=== PATIENT | male | born 1980 | race African-American/Black ===

== ENCOUNTER 2021-10-14 17:06 | Emergency (ER) | payer SELFPAY ==
[~2021-10-14] VITALS: Ht 170.2 cm; Wt 74.9 kg
[2021-10-14] MEDS ORDERED: cefTRIAXone 1,000 MG VIAL IM STA (17:29)
[2021-10-14] MEDS ORDERED: LIDOCAINE 1% INJ 20 ML 20 ML VIAL INJ STA (17:29)
[2021-10-14] MEDS ORDERED: LIDOCAINE 1% INJ 20 ML 20 ML VIAL INJ ONE (17:30)
--- NOTE | 2021-10-14 17:39 | ED Integumentary General ---
General Chief Complaint: Breast Complaints Stated Complaint: LT BREAST ENLARGED Nursing Triage Note: PT AMBULATE TO ROOM FS02 WITH C/O LEFT BREAST ENLARGEMENT AND TENDERNESS X3 DAYS. Source: patient History of Present Illness Date Seen by Provider: Oct 14, 2021 Time Seen by Provider: 17:11 Initial Comments 41 yo male presenting with complaints of redness, swelling, pain to the left breast. He has not had any drainage from this area. He denies any fever or chills. He has had increasing pain and redness to this area. He reports having recurrent abscesses in the past. He has been previously incarcerated and been told that he had MRSA when he was in correction. He usually gets abscesses under his arms and was told not to use deodorant. He denies having a primary care provider. He denies any allergies to medications and does not take any medicines on a regular basis. Timing/Duration: getting worse (over the last 3 days) Severity: moderate Location: torso (left breast) Possible Cause: no cause identified Associated Symptoms: No blisters, No fever, No flushing, No headache, No hives, No jaundice, No malaise, No nasal congestion, No numbness, No pallor, No paresthesia, No petechiae, No rash, No sore throat; swelling/mass/lumps (left b reast); No tingling Allergies and Home Medications Allergies Coded Allergies: No Known Drug Allergies (Unverified , 10/14/21) Patient Home Medication List Home Medication List Reviewed: Yes Hydrocodone/Acetaminophen (Hydrocodone-Acetamin 5-325 mg) 1 Each Tablet, 1 TAB PO Q4H PRN for PAIN-SEVERE (8-10) Prescribed by: NOLAN GALLEGOS on 10/14/211814 Ibuprofen (Ibuprofen) 800 Mg Tablet, 800 MG PO Q8H PRN for PAIN Prescribed by: NOLAN GALLEGOS on 10/14/211740 Sulfamethoxazole/Trimethoprim (Bactrim Ds Tablet) 1 Each Tablet, 1 EACH PO BID Prescribed by: NOLAN GALLEGOS on 10/14/211740 Review of Systems Review of Systems Constitutional: No chills, No fever EENTM: no symptoms reported Respiratory: no symptoms reported Cardiovascular: no symptoms reported Gastrointestinal: no symptoms reported Genitourinary: no symptoms reported Musculoskeletal: no symptoms reported Skin: see HPI, change in color (erythematous painful area to left breast) Psychiatric/Neurological: No Symptoms Reported Past Uszfxge-Ychpuc-Fmwwop Hx Patient Social History Tobacco Use?: Yes Tobacco type used: Cigarettes Smoking Status: Current Everyday Smoker Smokeless Tobacco Frequency: Never a User Use of E-Cig and/or Vaping dev: No Substance use?: No Alcohol Use?: No Past Medical History Surgery/Hospitalization HX: Recurrent abscesses Physical Exam Vital Signs Vital Signs - First Documented 10/14/21 17:07 Temp 36.5 Pulse 97 Resp 15 B/P (MAP) 146/89 (108) O2 Delivery Room Air Capillary Refill : Less Than 3 Seconds General Appearance: WD/WN, no apparent distress Neck: non-tender, full range of motion, supple, normal inspection Cardiovascular: normal peripheral pulses, regular rate, rhythm Respiratory: lungs clear, normal breath sounds, other (tender to palpation left breast where he has erythema with induration and increased warmth) Neurologic/Psychiatric: alert, oriented x 3 Skin: warm/dry Skin Problem Location: torso (left breast) Skin Problem Character: erythema, swelling, tenderness, warm Procedures/Interventions I&D : Site: left breast Blade Size: 11 I & D Procedure: sterile drapes applied, sterile dressing applied Progress After obtaining verbal consent from the patient the area on the inferior aspect of the left breast were it appeared to be pointing and coming to ahead was prepped with chlorhexidine swabs. Then using 1% plain lidocaine a total of 1.3 mL were infiltrated subcutaneously and into the tissue. Then using a 11 blade scalpel a single stab incision was made. This did result in the gushing fountain of purulence that sprayed out onto the floor several feet from the patient. The drainage was swabbed for wound culture. Then using gentle pressure the breast tissue and abscess was milked to express further purulent drainage and serosanguineous drainage. He was describing a burning sensation when this was happening. Patient tolerated the procedure well without any immediate complication. It was not felt to be numb enough for him to tolerate any irrigation or packing of the wound. Counseled patient on warm packs and stressed the importance of antibiotic. He was given an IM injection of Rocephin 1 g here in the ED as well as prescription for Bactrim DS. Given information for the [facility] clinic to establish care for follow-up. Advised of need to return to ER if having worsening symptoms and not improving with treatment Progress/Results/Core Measures Results/Orders My Orders Orders - NOLAN GALLEGOS MD Lidocaine 1% Inj 20 Ml (Xylocaine 1% Inj (10/14/21 17:29) Ceftriaxone (Rocephin) (10/14/21 17:29) Lidocaine 1% Inj 20 Ml (Xylocaine 1% Inj (10/14/21 17:30) Wound Culture (10/14/21 17:29) Medications Given in ED Current Medications Medications Dose Ordered Sig/Sandro Route Start Time Stop Time Status Last Admin Dose Admin Lidocaine HCl 2.1 ml ONCE ONCE INJ 10/14/21 17:30 10/14/21 17:32 DC 10/14/21 17:39 2.1 ML Vital Signs/I&O 10/14/21 17:07 Temp 36.5 Pulse 97 Resp 15 B/P (MAP) 146/89 (108) O2 Delivery Room Air Blood Pressure Mean: 108 Progress Progress Note : Progress Note Patient verbally consented for incision and drainage of the abscess of the left breast and anterior chest wall. When the incision and drainage was performed a large amount of purulent drainage was expressed. He did describe a burning sensation in that area after the procedure was done. Counseled on follow-up and return precautions as well as given information for the [facility] clinic to try and e stablish a primary care provider. Departure Impression Primary Impression: Abscess of left breast Disposition: 01 HOME, SELF-CARE Condition: Stable Departure-Patient Inst. Decision time for Depature: 18:16 Referrals: NO,LOCAL PHYSICIAN (PCP) Primary Care Physician [facility] Patient Instructions: Abscess Incision and Drainage ED Add. Discharge Instructions: Take full course of antibiotics to help treat for infection. Use warm packs to the area to help it drain more and increase the blood flow to the area so more antibiotic gets to the infection. If not improving then you may still need a surgeon to clean the wound and help get the infection to heal You could call [facility] clinic at [phone] to see about establishing care with them and be able to follow up with a local provider. All discharge instructions reviewed with patient and/or family. Voiced understanding. Scripts Hydrocodone/Acetaminophen (Hydrocodone-Acetamin 5-325 mg) 1 Each Tablet 1 TAB PO Q4H PRN for PAIN-SEVERE (8-10) for 3 Days, #18 TAB 0 Refills Prov: NOLAN GALLEGOS MD 10/14/21 Ibuprofen (Ibuprofen) 800 Mg Tablet 800 MG PO Q8H PRN for PAIN for 10 Days, #30 TAB 0 Refills Prov: NOLAN GALLEGOS MD 10/14/21 Sulfamethoxazole/Trimethoprim (Bactrim Ds Tablet) 1 Each Tablet 1 EACH PO BID for abscess/cellulitis for 10 Days, #20 TAB 0 Refills Prov: NOLAN GALLEGOS MD 10/14/21 NOLAN GALLEGOS MD Oct 14, 2021 17:39
[2021-10-14] MEDS ORDERED: SULF1TAB38 PO (17:41)
[2021-10-14] MEDS ORDERED: IBUP-1780 PO (17:41)
[2021-10-14] MEDS ORDERED: ACHD5005 PO (18:15)
[2021-10-14 18:22] VITALS: BP 146/76
== END 2021-10-14 18:22 | disposition home or self-care (01) ==
LOC: ER FS 17:07
DX: N61.1 Abscess of the breast and nipple (principal); F17.210 Nicotine dependence, cigarettes, uncomplicated; Z86.14 Personal history of Methicillin resistant Staphylococcus aureus infection
CPT/HCPCS: 87070; 87205; 99284

== ENCOUNTER 2022-10-29 09:03 | Emergency (ER) | payer SELFPAY ==
[~2022-10-29] VITALS: Ht 170 cm; Wt 68.0 kg
[~2022-10-29 09:03] MED LIST: ACHD5005 PO; IBUP-1780 PO; SULF1TAB38 PO
[2022-10-29 09:16] VITALS: BP 166/100
[2022-10-29] MEDS ORDERED: IBUPROFEN 800 MG (MOTRIN) TAB PO STA (09:24)
--- NOTE | 2022-10-29 09:32 | ED Lower Extremity ---
General Chief Complaint: Lower Extremity Stated Complaint: LEFT FOOT SWOLLEN Nursing Triage Note: Patient has presented to ER with cc of left foot pain and swelling for the last 5 days. He in unsure of any injury to his foot or ankle. He has not taken anything for the pain and came to ER for evaluation. Source: patient Exam Limitations: no limitations History of Present Illness Date Seen by Provider: Oct 29, 2022 Time Seen by Provider: 09:07 Initial Comments 42-year-old male presenting with complaints of pain and swelling to the left foot and ankle x5 days. He denies any acute injury or stress to his ankle and foot. He reports waking up 5 days ago and having pain and swelling. He has not tried taking anything for pain or swelling. He has felt hot at night but has not taken his temperature at home to check for fever. He denies having symptoms like this previously. 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 However there is no open sores or injuries to the foot and ankle. He does not have any increased redness or fluctuance or drainage from left foot and ankle. Onset: last week Severity: moderate Pain/Injury Location: left foot, left ankle Method of Injury: unknown Modifying Factors: Improves With Immobilization; Worse With Movement (walking and movement makes pain worse) Allergies and Home Medications Allergies Coded Allergies: No Known Drug Allergies (Unverified , 10/14/21) Patient Home Medication List Home Medication List Reviewed: Yes Ibuprofen (Ibuprofen) 800 Mg Tablet, 800 MG PO Q8H PRN for PAIN Prescribed by: NOLAN GALLEGOS on 10/29/22 1053 Metformin HCl (Metformin HCl) 500 Mg Tablet, 500 MG PO BID Prescribed by: NOLAN GALLEGOS on 10/29/22 1053 Tramadol HCl (Tramadol HCl) 50 Mg Tablet, 50 MG PO Q6H PRN for PAIN-SEVERE (8- 10) Prescribed by: NOLAN GALLEGOS on 10/29/22 1054 Discontinued Medications Hydrocodone/Acetaminophen (Hydrocodone-Acetamin 5-325 mg) 1 Each Tablet, 1 TAB PO Q4H PRN for PAIN-SEVERE (8-10) Prescribed by: NOLAN GALLEGOS on 10/14/21 181 Sulfamethoxazole/Trimethoprim (Bactrim Ds Tablet) 1 Each Tablet, 1 EACH PO BID Prescribed by: NOLAN GALLEGOS on 10/14/21 1741 Review of Systems Constitutional: see HPI; No chills EENTM: no symptoms reported Respiratory: no symptoms reported Cardiovascular: no symptoms reported Gastrointestinal: no symptoms reported Genitourinary: no symptoms reported Musculoskeletal: see HPI, joint pain (left ankle and foot), joint swelling (left ankle) Skin: No change in color Psychiatric/Neurological: Tingling (left foot) Past Cgmmnty-Xelxem-Xvbkzm Hx Patient Social History Tobacco Use?: Yes Tobacco type used: Cigarettes Smoking Status: Current Everyday Smoker Use of E-Cig and/or Vaping dev: No Substance use?: No Alcohol Use?: No Past Medical History Surgery/Hospitalization HX: Recurrent abscesses Physical Exam Vital Signs Vital Signs - First Documented 10/29/22 09:16 Temp 35.9 Pulse 91 Resp 16 B/P (MAP) 166/100 (122) Pulse Ox 99 O2 Delivery Room Air Capillary Refill : Height, Weight, BMI Height: '" Weight: lbs. oz. kg; 23.00 BMI Method: General Appearance: WD/WN, no apparent distress Cardiovascular: normal peripheral pulses Ankles: right ankle non-tender; bilateral ankle normal range of motion, bilateral ankle no evidence of injury; left ankle pain (pain with palpation and ROM), left ankle soft tissue tenderness, left ankle swelling Feet: left foot pain, left foot soft tissue tenderness, left foot swelling Neurologic/Tendon: normal motor functions, normal tendon functions, sensory deficit (reports tingling in left foot but intact to light touch) Neurologic/Psychiatric: alert, oriented x 3 Skin: normal color, warm/dry Progress/Results/Core Measures Results/Orders Lab Results Laboratory Tests Test 10/29/22 09:30 Range/Units White Blood Count 12.4 H 4.3-11.0 10^3/uL Red Blood Count 5.39 4.30-5.52 10^6/uL Hemoglobin 13.5 13.3-17.7 g/dL Hematocrit 42 40-54 % Mean Corpuscular Volume 77 L 80-99 fL Mean Corpuscular Hemoglobin 25 25-34 pg Mean Corpuscular Hemoglobin Concent 32 32-36 g/dL Red Cell Distribution Width 14.8 H 10.0-14.5 % Platelet Count 376 130-400 10^3/uL Mean Platelet Volume 8.8 L 9.0-12.2 fL Immature Granulocyte % (Auto) 1 % Neutrophils (%) (Auto) 63 42-75 % Lymphocytes (%) (Auto) 30 12-44 % Monocytes (%) (Auto) 6 0-12 % Eosinophils (%) (Auto) 1 0-10 % Basophils (%) (Auto) 0 0-10 % Neutrophils # (Auto) 7.8 1.8-7.8 10^3/uL Lymphocytes # (Auto) 3.7 1.0-4.0 10^3/uL Monocytes # (Auto) 0.7 0.0-1.0 10^3/uL Eosinophils # (Auto) 0.1 0.0-0.3 10^3/uL Basophils # (Auto) 0.0 0.0-0.1 10^3/uL Immature Granulocyte # (Auto) 0.1 0.0-0.1 10^3/uL D-Dimer 0.61 H 0.00-0.49 UG/ML Sodium Level 133 L 135-145 MMOL/L Potassium Level 3.8 3.6-5.0 MMOL/L Chloride Level 97 L 98-107 MMOL/L Carbon Dioxide Level 25 21-32 MMOL/L Anion Gap 11 5-14 MMOL/L Blood Urea Nitrogen 8 7-18 MG/DL Creatinine 0.66 0.60-1.30 MG/DL Estimat Glomerular Filtration Rate 121 BUN/Creatinine Ratio 12 Glucose Level 322 H 70-105 MG/DL Calcium Level 9.5 8.5-10.1 MG/DL Corrected Calcium 9.4 8.5-10.1 MG/DL Total Bilirubin 0.3 0.1-1.0 MG/DL Aspartate Amino Transf (AST/SGOT) 10 5-34 U/L Alanine Aminotransferase (ALT/SGPT) 9 0-55 U/L Alkaline Phosphatase 114 40-136 U/L C-Reactive Protein 0.84 H <0.50 MG/DL Total Protein 8.8 H 6.4-8.2 GM/DL Albumin 4.1 3.2-4.5 GM/DL My Orders Orders - NOLAN GALLEGOS MD Uric Acid (10/29/22 09:23) Cbc With Automated Diff (10/29/22 09:23) Comprehensive Metabolic Panel (10/29/22 09:23) Crp Fs (10/29/22 09:23) Fibrin Degradation Products (10/29/22 09:23) Ibuprofen Tablet (Motrin Tablet) (10/29/22 09:24) Ankle 3 View Left (10/29/22 09:25) Us Venous Lower Ext Lt (10/29/22 10:20) Vital Signs/I&O 10/29/22 09:16 Temp 35.9 Pulse 91 Resp 16 B/P (MAP) 166/100 (122) Pulse Ox 99 O2 Delivery Room Air Blood Pressure Mean: 122 Progress Progress Note #1: Progress Note With no obvious injury or break in the skin this may be related to issue with joint or inflammatory process. Will obtain xrays of left ankle to evaluate the bony structure looking for occult fracture, dislocation, signs of osteomyelitis. Basic labs of CBC, CMP, CRP, D dimer, Uric Acid. This will help look for infection, inflammation, DVT, Cellulitis, Gout. Administer Ibuprofen 800 mg po x 1 to start helping with pain and swelling while waiting on labs and tests. Progress Note #2: Time: 09:39 Progress Note On my personal interpretation and review of his 3 views of left ankle he has some mild soft tissue swelling but no acute bony abnormality. On the lateral view he has calcification of peripheral blood vessels showing on imaging. 0947 Radiologist read xrays as no acute bony abnormality. CBC shows mild elevation of WBC count to 12.4 with normal differential. He does have a low MCV of 77 but his Hgb is normal at 13.6. He could have some iron deficiency contributing to his low MCV but is not currently anemic. Will encourage him to follow up with clinic for this. The WBC count might be elevated due to stress reaction with him having over 5 days of pain and swelling or could be early infection as he has history of recurrent cellulitis and abscesses. Awaiting other labs Progress Note #3: Time: 10:18 Progress Note Chemistry and D dimer resulted by lab. His D dimer was just above normal level at 0.61 so will add on ultrasound doppler of LLE to check for DVT. As I already discussed with patient I did not feel this was a DVT as he has no calf pain, redness, swelling, cording. It seems to be more inflammatory with his ankle and achilles being tender to touch and movement. CRP slightly elevated as well to go with inflammatory process. He does have elevated glucose of 322 so I am diagnosing him with Diabetes and will start him on Metformin for that. Stressed importance of follow up with clinic and establish care for treating diabetes and borderline blood pressure. Renal function and liver function appear good with normal lab values. 1047 Ultrasound doppler of LLE does not show DVT. Will proceed with ibuprofen for inflammation and pain and swelling, Metformin for diabetes, Tramadol for severe pain. Continue to elevate and rest leg when possible. Establish care to follow up on diabetes, blood pressure and ankle. Advised that if this is related to diabetes he may even need to be in a boot or cast and crutches to take weight off of the ankle and foot to help with the inflammation and pain. If he is developing a Charcot Joint then he would need this more aggressive treatment. Will start with NSAIDS, rest, elevation and trying to get control of diabetes. Diagnostic Imaging Diagonstic Imaging: Xray Plain Films/CT/US/NM/MRI: ankle Comments NAME: GALA ROSARIO [facility] REC#: [id number] PT STATUS: REG ER : 1980 PHYSICIAN: NOLAN GALLEGOS MD ADMIT DATE: 10/29/22/ER FS Draft Date of Exam:10/29/22 ANKLE 3 VIEW LEFT Indication: Left ankle pain and swelling. Time of Exam: 9:41 AM 3 views of the left ankle were obtained. Ankle alignment is normal. Ankle mortise is well-maintained. Talar dome is smooth. No fracture or dislocation is identified. Impression: No acute abnormality is detected. Dictated on workstation # [id number] Dict: 10/29/22 0941 Trans: 10/29/22 0944 [facility] [id number] Interpreted by: SUNITA VILLA MD Electronically signed by: Reviewed: Reviewed by Me Diagonstic Imaging: Ultrasound Plain Films/CT/US/NM/MRI: leg Comments NAME: GALA ROSARIO [facility] REC#: [id number] PT STATUS: REG ER : 1980 PHYSICIAN: NOLAN GALLEGOS MD ADMIT DATE: 10/29/22/ER FS Draft Date of Exam:10/29/22 US VENOUS LOWER EXT LT PROCEDURE: US left lower extremity venous. TECHNIQUE: Multiple real-time grayscale images were obtained over the left lower extremity in various projections. Additional duplex Doppler and color Doppler images were also obtained. INDICATION: Elevated D-dimer and left foot swelling. FINDINGS: There is no evidence of left lower extremity DVT. Left lower extremity deep venous system shows normal compressibility with normal response to augmentation and Valsalva. No fluid collection or mass is detected. IMPRESSION: No evidence of left lower extremity DVT. Dictated on workstation # [id number] Dict: 10/29/22 1054 Trans: 10/29/22 1059 [id number] Interpreted by: SUNITA VILLA MD Electronically signed by: Reviewed: Reviewed by Me Departure Impression Primary Impression: Pain and swelling of left ankle Additional Impressions: Pain in left foot Swelling of left foot New onset type 2 diabetes mellitus Elevated blood pressure reading in office without diagnosis of hypertension Disposition: HOME, SELF-CARE Condition: Stable Departure-Patient Inst. Decision time for Depature: 10:49 Referrals: NO,LOCAL PHYSICIAN (PCP) [place] Care Phys[place] [facility] [place] Instructions: High Blood Sugar, Adult ED, Swollen Joints (DC), Diabetes and Diet, The ABCs of Diabetes, Treatment for Type 2 Diabetes, How to Keep Track of Your Blood Sugar Add. Discharge Instructions: Establish care with primary care clinic such as [facility] by calling [phone]. Try to rest and elevate your foot when you can. Take the prescription anti-inflammatory to help with pain and swelling. Take the Metformin to help with your glucose and new onset Diabetes. Establish care with clinic so they may help you manage this and they might start you on blood pressure medicine as well. Try to watch your diet and avoid extra sugar and sweets in your diet. The clinic can help get you more diabetes education on monitoring your sugars as well as diet changes and medicines. All discharge instructions reviewed with patient and/or family. Voiced understanding. Scripts Tramadol HCl (Tramadol HCl) 50 Mg Tablet 50 MG PO Q6H PRN for PAIN-SEVERE (8-10) for 3 Days, #12 TAB 0 Refills Prov: NOLAN GALLEGOS MD 10/29/22 Metformin HCl (Metformin HCl) 500 Mg Tablet 500 MG PO BID for Hyperglycemia for 30 Days, #60 TAB 0 Refills Prov: NOLAN GALLEGOS MD 10/29/22 Ibuprofen (Ibuprofen) 800 Mg Tablet 800 MG PO Q8H PRN for PAIN for 10 Days, #30 TAB 0 Refills Prov: ENYART,NOLAN E MD 10/29/22 NOLAN GALLEGOS MD Oct 29, 2022 09:32
[2022-10-29 09:41] LABS: BASOPHILS % (AUTO) 0 % (0-10); EOSINOPHILS # (AUTO) 0.1 10^3/uL (0.0-0.3); EOSINOPHILS % (AUTO) 1 % (0-10); HEMATOCRIT 42 % (40-54); HEMOGLOBIN 13.5 g/dL (13.3-17.7); LYMPHOCYTES # (AUTO) 3.7 10^3/uL (1.0-4.0); LYMPHOCYTES % (AUTO) 30 % (12-44); MEAN CORPUSCULAR HEMOGLOBIN 25 pg (25-34); MEAN CORPUSCULAR HGB CONC 32 g/dL (32-36); MEAN CORPUSCULAR VOLUME 77 fL (80-99); MEAN PLATELET VOLUME 8.8 fL (9.0-12.2); MONOCYTES # (AUTO) 0.7 10^3/uL (0.0-1.0); MONOCYTES % (AUTO) 6 % (0-12); NEUTROPHILS # (AUTO) 7.8 10^3/uL (1.8-7.8); NEUTROPHILS % (AUTO) 63 % (42-75); PLATELET COUNT 376 10^3/uL (130-400); WHITE BLOOD COUNT 12.4 10^3/uL (4.3-11.0)
--- NOTE | 2022-10-29 09:44 | Diagnostic Imaging Report ---
Indication: Left ankle pain and swelling. Time of Exam: 9:41 AM 3 views of the left ankle were obtained. Ankle alignment is normal. Ankle mortise is well-maintained. Talar dome is smooth. No fracture or dislocation is identified. Impression: No acute abnormality is detected. Dictated by: Dictated on workstation # [id number]
[2022-10-29 10:05] LABS: BILIRUBIN,TOTAL 0.3 MG/DL (0.1-1.0); CALCIUM 9.5 MG/DL (8.5-10.1); CREATININE SERUM 0.66 MG/DL (0.60-1.30); POTASSIUM 3.8 MMOL/L (3.6-5.0)
[2022-10-29 10:06] LABS: ALBUMIN 4.1 GM/DL (3.2-4.5); TOTAL PROTEIN 8.8 GM/DL (6.4-8.2)
[2022-10-29] MEDS ORDERED: IBUP-1780 PO (10:53)
[2022-10-29] MEDS ORDERED: TRM50T PO (10:53)
[2022-10-29] MEDS ORDERED: METF-397 PO (10:53)
--- NOTE | 2022-10-29 10:59 | Diagnostic Imaging Report ---
PROCEDURE: US left lower extremity venous. TECHNIQUE: Multiple real-time grayscale images were obtained over the left lower extremity in various projections. Additional duplex Doppler and color Doppler images were also obtained. INDICATION: Elevated D-dimer and left foot swelling. FINDINGS: There is no evidence of left lower extremity DVT. Left lower extremity deep venous system shows normal compressibility with normal response to augmentation and Valsalva. No fluid collection or mass is detected. IMPRESSION: No evidence of left lower extremity DVT. Dictated by: Dictated on workstation # [id number]
[2022-10-29 11:28] LABS: URIC ACID 4.1 MG/DL (2.6-7.2)
== END 2022-10-29 11:00 | disposition home or self-care (01) ==
LOC: EDUNIT# 09:03 → ER FS 09:05
DX: M79.672 Pain in left foot (principal); M25.572 Pain in left ankle and joints of left foot; R22.42 Localized swelling, mass and lump, left lower limb; E11.9 Type 2 diabetes mellitus without complications; R03.0 Elevated blood-pressure reading, without diagnosis of hypertension; F17.210 Nicotine dependence, cigarettes, uncomplicated; Z28.310 Unvaccinated for COVID-19
CPT/HCPCS: 36415; 73610; 80053; 84550; 85025; 85379; 86141

== ENCOUNTER 2023-02-05 17:56 | Emergency (ER) | payer SELFPAY ==
[~2023-02-05] VITALS: Ht 170.1 cm; Wt 70.5 kg
[~2023-02-05 17:56] MED LIST changes: +METF-397 PO; +TRM50T PO
[2023-02-05 18:29] LABS: BASOPHILS # (AUTO) 0.1 10^3/uL (0.0-0.1); BASOPHILS % (AUTO) 1 % (0-10); EOSINOPHILS # (AUTO) 0.1 10^3/uL (0.0-0.3); EOSINOPHILS % (AUTO) 1 % (0-10); HEMATOCRIT 46 % (40-54); HEMOGLOBIN 14.9 g/dL (13.3-17.7); LYMPHOCYTES # (AUTO) 0.7 10^3/uL (1.0-4.0); LYMPHOCYTES % (AUTO) 10 % (12-44); MEAN CORPUSCULAR HEMOGLOBIN 25 pg (25-34); MEAN CORPUSCULAR HGB CONC 33 g/dL (32-36); MEAN CORPUSCULAR VOLUME 77 fL (80-99); MEAN PLATELET VOLUME 9.1 fL (9.0-12.2); MONOCYTES # (AUTO) 1.2 10^3/uL (0.0-1.0); MONOCYTES % (AUTO) 17 % (0-12); NEUTROPHILS % (AUTO) 71 % (42-75); PLATELET COUNT 264 10^3/uL (130-400); WHITE BLOOD COUNT 7.1 10^3/uL (4.3-11.0)
--- NOTE | 2023-02-05 18:30 | ED Abdominal Pain ---
General Chief Complaint: Abdominal/GI Problems Stated Complaint: LLQ PAIN Source of Information: Patient History of Present Illness Date Seen by Provider: Feb 05, 2023 Time Seen by Provider: 18:23 Initial Comments 42-year-old male presenting with complaints of left lower quadrant abdominal pain that started yesterday and was worse today. He states he has had chills throughout the day. He had a loose stool yesterday. He has had some cramping pain in his left lower quadrant. He denies symptoms like this previously. He has had no blood in his stool. He denies any trauma to his abdomen. He denies any pain or burning with urination. He has had no blood in his urine. He denies any ill contacts. He does feel like he has some shortness of breath as well. Timing/Duration: 1-2 Days Severity/Quality: Moderate, Cramping Location: LLQ Radiation: LLQ Activities at Onset: None Modifying Factors: Worsens With Movement, Worsens With Palpation Associated Symptoms: No Back Pain, No Diaphoresis, No Fever/Chills; Fatigue; No Nausea/Vomiting; Shortness of Air (Mild); No Swelling/Mass in Abdomen, No Syncope, No Weakness Allergies and Home Medications Allergies Coded Allergies: No Known Drug Allergies (Unverified , 10/14/21) Patient Home Medication List Home Medication List Reviewed: Yes Ibuprofen (Ibuprofen) 800 Mg Tablet, 800 MG PO Q8H PRN for PAIN Prescribed by: NOLAN GALLEGOS on 10/29/22 105 Ibuprofen (Ibuprofen) 800 Mg Tablet, 800 MG PO Q8H PRN for PAIN Prescribed by: NOLAN GALLEGOS on 02/05/231909 Metformin HCl (Metformin HCl) 500 Mg Tablet, 500 MG PO BID Prescribed by: NOLAN GALLEGOS on 10/29/22 105 Ondansetron (Ondansetron Odt) 4 Mg Tab.rapdis, 4 MG PO Q6H PRN for NAUSEA/VOMITING Prescribed by: NOLAN GALLEGOS on 02/05/231909 Tramadol HCl (Tramadol HCl) 50 Mg Tablet, 50 MG PO Q6H PRN for PAIN-SEVERE (8- 10) Prescribed by: NOLAN GALLEGOS on 10/29/22 1054 Review of Systems Review of Systems Constitutional: chills; No fever; malaise, weakness EENTM: No Nose Congestion Respiratory: See HPI Cardiovascular: See HPI Gastrointestinal: See HPI Genitourinary: See HPI Musculoskeletal: see HPI Skin: no symptoms reported Psychiatric/Neurological: No Symptoms Reported Endocrine: No Symptoms Reported Hematologic/Lymphatic: No Symptoms Reported Past Ggyznef-Rjdoqi-Gvsbie Hx Past Medical History Surgery/Hospitalization HX: Recurrent abscesses Physical Exam Vital Signs Vital Signs - First Documented 02/05/23 18:02 Temp 36.9 Pulse 113 Resp 16 B/P (MAP) 139/94 (109) Pulse Ox 95 O2 Delivery Room Air Capillary Refill : Height/Weight/BMI Height: '" Weight: lbs. oz. kg; 23.00 BMI Method: General Appearance: WD/WN, no apparent distress HEENT: PERRL/EOMI, pharynx normal Neck: non-tender, full range of motion, supple, normal inspection Respiratory: chest non-tender, lungs clear, normal breath sounds, no respiratory distress, no accessory muscle use Cardiovascular: normal peripheral pulses, regular rate, rhythm Gastrointestinal: normal bowel sounds, soft, no pulsatile mass; No distended, No guarding, No rebound; tenderness (Mild tenderness of the left lower quadrant without guarding or rebound.) Rectal: deferred Extremities: normal range of motion, non-tender, normal capillary refill Neurologic/Psychiatric: alert, oriented x 3 Skin: normal color, warm/dry Progress/Results/Core Measures Results/Orders Lab Results Laboratory Tests Test 02/05/23 18:19 02/05/23 18:22 Range/Units White Blood Count 7.1 4.3-11.0 10^3/uL Red Blood Count 5.93 H 4.30-5.52 10^6/uL Hemoglobin 14.9 13.3-17.7 g/dL Hematocrit 46 40-54 % Mean Corpuscular Volume 77 L 80-99 fL Mean Corpuscular Hemoglobin 25 25-34 pg Mean Corpuscular Hemoglobin Concent 33 32-36 g/dL Red Cell Distribution Width 17.5 H 10.0-14.5 % Platelet Count 264 130-400 10^3/uL Mean Platelet Volume 9.1 9.0-12.2 fL Immature Granulocyte % (Auto) 1 % Neutrophils (%) (Auto) 71 42-75 % Lymphocytes (%) (Auto) 10 L 12-44 % Monocytes (%) (Auto) 17 H 0-12 % Eosinophils (%) (Auto) 1 0-10 % Basophils (%) (Auto) 1 0-10 % Neutrophils # (Auto) 5.0 1.8-7.8 10^3/uL Lymphocytes # (Auto) 0.7 L 1.0-4.0 10^3/uL Monocytes # (Auto) 1.2 H 0.0-1.0 10^3/uL Eosinophils # (Auto) 0.1 0.0-0.3 10^3/uL Basophils # (Auto) 0.1 0.0-0.1 10^3/uL Immature Granulocyte # (Auto) 0.1 0.0-0.1 10^3/uL Sodium Level 138 135-145 MMOL/L Potassium Level 3.9 3.6-5.0 MMOL/L Chloride Level 101 98-107 MMOL/L Carbon Dioxide Level 24 21-32 MMOL/L Anion Gap 13 5-14 MMOL/L Blood Urea Nitrogen 13 7-18 MG/DL Creatinine 0.96 0.60-1.30 MG/DL Estimat Glomerular Filtration Rate 102 BUN/Creatinine Ratio 14 Glucose Level 121 H 70-105 MG/DL Calcium Level 9.5 8.5-10.1 MG/DL Corrected Calcium 9.1 8.5-10.1 MG/DL Total Bilirubin 0.4 0.1-1.0 MG/DL Aspartate Amino Transf (AST/SGOT) 14 5-34 U/L Alanine Aminotransferase (ALT/SGPT) 10 0-55 U/L Alkaline Phosphatase 57 40-136 U/L Total Protein 8.4 H 6.4-8.2 GM/DL Albumin 4.5 3.2-4.5 GM/DL Lipase 26 8-78 U/L Influenza Type A (RT-PCR) Not Detected Not Detecte Influenza Type B (RT-PCR) Not Detected Not Detecte SARS-CoV-2 RNA (RT-PCR) Detected H Not Detecte My Orders Orders - NOLAN GALLEGOS MD Comprehensive Metabolic Panel (02/05/23 18:00) Lipase (02/05/23 18:00) Ed Iv/Invasive Line Start (02/05/23 18:00) Cbc With Automated Diff (02/05/23 18:00) Ct Abdomen/Pelvis Wo (02/05/23 18:00) Covid 19 Inhouse Test (02/05/23 18:30) Influenza A And B By Pcr (02/05/23 18:30) Isolation Central Supply Req (02/05/23 18:30) Ns Iv 1000 Ml (Sodium Chloride 0.9%) (02/05/23 18:38) Ketorolac Injection (Toradol Injection) (02/05/23 18:38) Vital Signs/I&O 02/05/23 02/05/23 18:02 20:00 Temp 36.9 36.9 Pulse 113 113 Resp 16 16 B/P (MAP) 139/94 (109) 139/94 Pulse Ox 95 95 O2 Delivery Room Air Room Air Progress Progress Note #1: Progress Note Potential diagnosis of diverticulitis, colitis, constipation, bowel obstruction, COVID infection, influenza, viral syndrome. Obtain peripheral IV access and send blood for complete blood count, comprehensive metabolic profile, lipase. Send urinalysis to evaluate for possible infection and look at his hydration status. CT scan of the abdomen and pelvis without contrast looking for possible kidney stones or pathology in the left lower quadrant cause of symptoms. Ordered normal saline 1 L IV fluid bolus for hydration, Toradol 15 mg IV for pain. Progress Note #2: Progress Note Complete blood count did not show any acute significant abnormality as he has a normal white blood cell count of 7.1 and was not anemic with a hemoglobin of 14.9. His comprehensive metabolic profile did not show acute significant abnormality. Since he was having chills and general vague symptoms a nasal swab was also performed to check for COVID and influenza. This did come back positive for COVID. His CT scan of the abdomen pelvis on my personal review and interpretation did not show any acute mass, obstruction, blockage. Anticipate symptomatic care and treatment at home with return precautions. Progress Note #3: Progress Note I reviewed the radiologist report on the CT scan of the abdomen pelvis without IV contrast. They agreed that they did not see any acute significant abnormality. He had not taken anything for pain at home but he did have improvement with his dosing of Toradol and IV fluids here in the ED. We will try adding on Zofran so he has something to help keep his stomach settled which might help with his appetite. Counseled on management of COVID infection. Continue with symptomatic care and support Diagnostic Imaging Diagonstic Imaging: CT Plain Films/CT/US/NM/MRI: abdomen, pelvis Comments [facility] [place], [place] NAME: GALA ROSARIO [facility] REC#: [id number] PT STATUS: REG ER : 1980 PHYSICIAN: NOLAN GALLEGOS MD ADMIT DATE: 02/05/23/ER FS Signed Date of Exam:02/05/23 CT ABDOMEN/PELVIS WO CT ABDOMEN/PELVIS WO TECHNIQUE: Unenhanced CT imaging of the abdomen and pelvis was performed. 2-D reformats are created and submitted for interpretation. Automatic exposure controls were utilized to optimize patient dose. INDICATION: Left lower quadrant pain COMPARISON: None available. FINDINGS: Lower chest: The lung bases are clear. No pericardial or pleural effusion. Peritoneum: No free intraperitoneal air or fluid. Liver and biliary system: Unenhanced liver is normal. The gallbladder is normal. No biliary duct dilation. Spleen and Pancreas: Spleen is normal. Unenhanced pancreas is grossly normal. Adrenals: There is a 2.0 x 2.6 right adrenal nodule that is low in attenuation, but does not meet criteria for adenoma. Left adrenal gland is normal. tract: No renal or ureteral calculi. No obstructive uropathy. Urinary bladder is normally filled. There are few phleboliths within the pelvis. Prostate is not enlarged. GI tract: Stomach is normally filled with fluid and there is no wall thickening. No bowel obstruction. No pericolonic inflammatory changes. Normal appendix. Vasculature and Lymph nodes: Normal caliber aorta has moderate calcifications. No abdominal or pelvic lymphadenopathy. Musculoskeletal: No concerning osseous lesion. IMPRESSION: 1. No urinary tract calculi or obstructive uropathy. 2. No diverticulitis or colitis. 3. Indeterminate right adrenal nodule is likely an adenoma. Advise a nonemergent/outpatient followup CT abdomen without and with IV contrast per the adrenal protocol. Dictated by: Dictated on workstation # [id number] Dict: 02/05/231823 Trans: 02/05/231846 CV [id number] Interpreted by: NITIN MOYA MD Electronically signed by: NITIN MOYA MD 02/05/231846 Reviewed: Reviewed by Me Departure Impression Primary Impression: COVID-19 virus infection Additional Impressions: Abdominal pain, left lower quadrant Viral syndrome Disposition: HOME, SELF-CARE Condition: Stable Departure-Patient Inst. Decision time for Depature: 19:06 Referrals: KATHRYN MEDLEY APRN (PCP) Primary Care Physician [facility] (Family) Primary Care Physician Patient Instructions: COVID-19 ED, Abdominal Pain, Adult ED Add. Discharge Instructions: Stay well hydrated and you may have to force yourself to eat foods and meals. Wear a mask for the next 10 days and you should try to quarantine and isolate for the next 5 days. You could try the nausea medicine to see if it helps with your appetite and eating. Take Acetaminophen and alternate with Ibuprofen if needed for chills, body aches and abdominal pain. All discharge instructions reviewed with patient and/or family. Voiced understanding. Scripts Ibuprofen (Ibuprofen) 800 Mg Tablet 800 MG PO Q8H PRN for PAIN for 10 Days, #30 TAB 0 Refills Prov: NOLAN GALLEGOS MD 02/05/23 Ondansetron (Ondansetron Odt) 4 Mg Tab.rapdis 4 MG PO Q6H PRN for NAUSEA/VOMITING for 5 Days, #20 TAB 0 Refills Prov: NOLAN GALLEGOS MD 02/05/23 Work/School Note: Work Release Form Date Seen in the Emergency Department: Feb 05, 2023 Return to Work: Feb 09, 2023 Restrictions: Return-No Fever (24hrs) Other Restrictions Listed Below: Quarantine next 5 days. Wear mask for next 10 days. NOLAN GALLEGOS MD Feb 05, 2023 18:30
--- NOTE | 2023-02-05 18:35 | Diagnostic Imaging Report ---
CT ABDOMEN/PELVIS WO TECHNIQUE: Unenhanced CT imaging of the abdomen and pelvis was performed. 2-D reformats are created and submitted for interpretation. Automatic exposure controls were utilized to optimize patient dose. INDICATION: Left lower quadrant pain COMPARISON: None available. FINDINGS: Lower chest: The lung bases are clear. No pericardial or pleural effusion. Peritoneum: No free intraperitoneal air or fluid. Liver and biliary system: Unenhanced liver is normal. The gallbladder is normal. No biliary duct dilation. Spleen and Pancreas: Spleen is normal. Unenhanced pancreas is grossly normal. Adrenals: There is a 2.0 x 2.6 right adrenal nodule that is low in attenuation, but does not meet criteria for adenoma. Left adrenal gland is normal. tract: No renal or ureteral calculi. No obstructive uropathy. Urinary bladder is normally filled. There are few phleboliths within the pelvis. Prostate is not enlarged. GI tract: Stomach is normally filled with fluid and there is no wall thickening. No bowel obstruction. No pericolonic inflammatory changes. Normal appendix. Vasculature and Lymph nodes: Normal caliber aorta has moderate calcifications. No abdominal or pelvic lymphadenopathy. Musculoskeletal: No concerning osseous lesion. IMPRESSION: 1. No urinary tract calculi or obstructive uropathy. 2. No diverticulitis or colitis. 3. Indeterminate right adrenal nodule is likely an adenoma. Advise a nonemergent/outpatient followup CT abdomen without and with IV contrast per the adrenal protocol. Dictated by: Dictated on workstation # [id number]
[2023-02-05] MEDS ORDERED: KETOROLAC 30 MG/ML VIAL IVP STA (18:38)
[2023-02-05] MEDS ORDERED: NS IV 1000 ML 1,000 ML IV STA (18:38)
[2023-02-05 18:52] LABS: ALBUMIN 4.5 GM/DL (3.2-4.5); BILIRUBIN,TOTAL 0.4 MG/DL (0.1-1.0); CALCIUM 9.5 MG/DL (8.5-10.1); CREATININE SERUM 0.96 MG/DL (0.60-1.30); POTASSIUM 3.9 MMOL/L (3.6-5.0); TOTAL PROTEIN 8.4 GM/DL (6.4-8.2)
[2023-02-05] MEDS ORDERED: ONDA4TAB11 PO (19:10)
[2023-02-05] MEDS ORDERED: IBUP-1780 PO (19:10)
[2023-02-05 20:00] VITALS: BP 139/94
== END 2023-02-05 20:00 | disposition home or self-care (01) ==
LOC: EDUNIT# 17:56 → ER FS 17:58
DX: U07.1 COVID-19 (principal); R10.32 Left lower quadrant pain; R06.02 Shortness of breath; R68.83 Chills (without fever); Z28.310 Unvaccinated for COVID-19
CPT/HCPCS: 36415; 74176; 80053; 83690; 85025; 87636